=== PATIENT | male | born 1990 | race Caucasian/White ===

== ENCOUNTER 2020-09-29 09:28 | Emergency (ER) | payer SELFPAY ==
[~2020-09-29] VITALS: Ht 188 cm; Wt 100.2 kg
[2020-09-29 09:37] VITALS: BP 143/77; Ht 188 cm; Wt 100.2 kg
== END 2020-09-29 11:12 | disposition home or self-care (01) ==
LOC: ED 09:28
DX: J02.8 Acute pharyngitis due to other specified organisms (principal); F17.200 Nicotine dependence, unspecified, uncomplicated; Z88.0 Allergy status to penicillin
CPT/HCPCS: J1100